=== PATIENT | male | born 1965 | race Caucasian/White ===

== ENCOUNTER 2023-11-14 18:54 | Inpatient (IN) | payer OTHER ==
[~2023-11-14] VITALS: Ht 177.8 cm; Wt 142.3 kg
[~2023-11-14 18:54] MED LIST: ACET-2123 PO; ALBU2.5V39 NEB; APIX5TAB PO; BUPR1FIL3 SL; BUPR1FIL5 SL; CALCIUM CHLORIDE 100 MG/ML 10 ML SYRINGE IVP ONE; DAPA10TA PO; EPINEPHrine 1:10,000 [1 MG/10 ML] SYRINGE IVP ONE; FINA-27 PO; FLUO20CA36 PO; FLUT1BLS15 IH; FURO40 PO; LACT10SO10 PO; METO2.5T2 PO; METO25XL PO; POTA-92 PO; SODIUM BICARBONATE [ADULT] 8.4% 50 MEQ/50 ML SYRINGE IVP ONE; TAMS0.4C94 PO; XALA2.5OS OU
[2023-11-14 19:06] VITALS: PULSE 87; RESP 26; O2SAT 100
[2023-11-14] MEDS ORDERED: 0.9% SODIUM CHLORIDE 10 ML SYRINGE IVP PRN (19:30)
[2023-11-14 19:58] LABS: BASOPHILS % (AUTO) 0.5 % (0.0-2.0); EOSINOPHILS % (AUTO) 0.6 % (1.0-6.0); HEMATOCRIT 49.5 % (41-53); LYMPHOCYTES # (AUTO) 2.7 K/uL (1.0-4.8); LYMPHOCYTES % (AUTO) 22.5 % (22.0-44.0); MEAN CORPUSCULAR HEMOGLOBIN 27.7 pg (26.0-34.0); MEAN CORPUSCULAR HGB CONC 30.4 G/dL (31.0-37.0); MEAN CORPUSCULAR VOLUME 91 fL (80-100); MONOCYTES # (AUTO) 1.3 K/uL (0.1-1.0); NEUTROPHILS # (AUTO) 7.9 K/uL (1.8-7.7); NEUTROPHILS % (AUTO) 65.4 % (40.0-70.0); PLATELET COUNT (AUTO) 173 K/uL (150-450); RED BLOOD CELL COUNT(AUTO) 5.43 MIL/uL (4.50-5.90); RED CELL DISTRIBUTION WIDTH 20.7 % (11.5-14.5); WHITE BLOOD COUNT (AUTO) 12.1 K/uL (4.5-11.0)
[2023-11-14 20:05] LABS: ABG BASE EXCESS 23.3 mmol/L (-2.0-3.0); ABG HCO3 38.9 mmol/L (22.0-26.0); ABG METHEMOGLOBIN 0.6 % (0.0-1.5); ABG OXYGEN CONTENT 21.2 mL/dL (15.0-23.0); ABG OXYGEN SATURATION 99.4 % (95.0-98.0); ABG OXYHEMOGLOBIN 88.2 % (94.0-100.0); ABG TOTAL HEMOGLOBIN 16.8 G/dL (12.0-18.0); PO2, ARTERIAL BG 204.3 mmHg (84.0-92.0); SOURCE, BLOOD GAS ARTERIAL; TEMPERATURE, FAHRENHEIT, BG 98.6 FAHREN (96.0-98.6)
[2023-11-14 20:06] LABS: INR 1.2 (0.9-1.1); PROTHROMBIN TIME 12.7 SEC (9.4-11.6)
[2023-11-14 20:06] LABS: ABG PCO2 156 mmHg (35-45); ABG PH 7.142 (7.35-7.450)
[2023-11-14 20:07] LABS: ABG CARBOXYHEMOGLOBIN 10.7 % (0.0-1.5); ALLEN TEST, BLOOD GAS Positive; O2 DEVICE,BLOOD GAS VENTILATOR (ROOM AIR); PEEP,BG 5 cm H2O; SITE, BLOOD GAS RT RADIAL; VT, ABG 500 ml
[2023-11-14 20:14] LABS: TROPONIN I-HIGH SENSITIVITY 40 ng/L (<76)
[2023-11-14 20:16] LABS: B-TYPE NATRIURETIC PEPTIDE 828 pg/mL (0-100)
[2023-11-14 20:31] LABS: ALANINE AMINOTRANSFERASE 20 U/L (12-78); ALBUMIN 3.1 g/dL (3.4-5.0); ALKALINE PHOSPHATASE 88 U/L (46-116); ANION GAP 0 mmol/L (8-16); ASPARTATE AMINOTRANSFERASE 31 U/L (15-37); BILIRUBIN,TOTAL 0.7 mg/dL (0.1-1.0); CALCIUM, TOTAL 8.7 mg/dL (8.8-10.5); CHLORIDE 98 mmol/L (98-107); CREATINE KINASE, TOTAL ONLY 85 U/L (39-308); CREATININE 0.91 mg/dL (0.60-1.30); GLOMERULAR FILTR. RATE CALC > 60 mL/min (>60); GLUCOSE,RANDOM 151 mg/dL (70-110); POTASSIUM 4.2 mmol/L (3.5-5.1); SODIUM SERUM 143 mmol/L (136-145); TOTAL PROTEIN, SERUM 6.4 g/dL (6.4-8.2); UREA NITROGEN, BLOOD 25 mg/dL (7-18)
[2023-11-14 20:33] LABS: ALCOHOL, BLOOD (SERUM) < 3 mg/dL (0-10)
[2023-11-14 20:36] LABS: LACTIC ACID 3.6 mmol/L (0.4-2.0)
[2023-11-14 20:37] LABS: CARBON DIOXIDE 45 mmol/L (22-29)
[2023-11-14 21:08] LABS: RBC MORPHOLOGY COMMENT ABNORMAL RBC MORPH
[2023-11-14] MEDS: PIPERACILLIN/TAZO 3.375 GM/D5W 50 ML IV ONE (22:10)
[2023-11-14] MEDS: SODIUM CHLORIDE 0.9% 3,600 ML IV ONE (22:10)
[2023-11-14] MEDS: FAMOTIDINE 20 MG/2 ML VIAL IVP SCH (22:11)
[2023-11-14] MEDS: MethylPREDNISolone SOD SUCC 125 MG/2 ML VIAL IVP SCH (22:11)
[2023-11-14] MEDS: PROPOFOL 1000 MG/ISO-OSM 100 ML IV PRN (22:12)
[2023-11-14] MEDS: ROCURONIUM BROMIDE 10 MG/ML 5 ML VIAL IVP ONE (22:36)
[2023-11-14 22:39] LABS: COVID AG,FIA SOURCE NASAL SWAB
[2023-11-14 23:01] LABS: APPEARANCE,URINE CLEAR (CLEAR); BILIRUBIN,URINE NEGATIVE (NEGATIVE); COLOR,URINE YELLOW (YELLOW); GLUCOSE, URINE (UA) 300-500 mg/dL (NEGATIVE); KETONES,URINE NEGATIVE (NEGATIVE); LEUKOCYTE ESTERASE ,URINE NEGATIVE (NEGATIVE); NITRATE,URINE NEGATIVE (NEGATIVE); OCCULT BLOOD,URINE TRACE (NEGATIVE); PROTEIN,URINE 100-200,SEE CONFIRM mg/dL (NEGATIVE)
[2023-11-14 23:06] VITALS: PULSE 142; RESP 30; O2SAT 98
[2023-11-14 23:07] LABS: ALCOHOL, URINE DRUG SCREEN NEGATIVE (NEGATIVE); AMPHET/METH SCREEN,URINE NEGATIVE (NEGATIVE); BARBITURATE SCREEN, URINE NEGATIVE (NEGATIVE); BENZODIAZEPINES SCREEN,URINE NEGATIVE (NEGATIVE); CANNABINOID SCREEN,URINE NEGATIVE (NEGATIVE); COCAINE SCREEN,URINE NEGATIVE (NEGATIVE); METHADONE SCREEN, URINE NEGATIVE (NEGATIVE); OPIATE SCREEN,URINE NEGATIVE (NEGATIVE); PHENCYCLIDINE SCREEN,URINE NEGATIVE (NEGATIVE)
[2023-11-14 23:10] LABS: SARS-COV2 (COVID) ANTIGEN,FIA Negative (Negative)
[2023-11-14 23:30] LABS: BACTERIA,URINE Few /HPF (None Seen); FINE GRANULAR CASTS,URINE 0-2 /LPF (None Seen); RBC,URINE 0-2 /HPF (0-2); SQUAMOUS EPITHELIAL CELL,UR Few /LPF (None Seen); SULFOSALICYLIC ACID,URINE 2+ (Negative); YEAST,URINE Moderate /HPF (None Seen)
[2023-11-14] MEDS ORDERED: DEXTROSE 50%-WATER 25 GM/50 ML SYRINGE IVP PRN (23:30)
[2023-11-14 23:49] LABS: ABG BASE EXCESS 17.5 mmol/L (-2.0-3.0); ABG HCO3 36.5 mmol/L (22.0-26.0); ABG METHEMOGLOBIN 0.6 % (0.0-1.5); ABG OXYGEN CONTENT 20.8 mL/dL (15.0-23.0); ABG OXYGEN SATURATION 97.2 % (95.0-98.0); ABG PH 7.326 (7.35-7.450); ABG TOTAL HEMOGLOBIN 16.4 G/dL (12.0-18.0); PO2, ARTERIAL BG 85.3 mmHg (84.0-92.0); SOURCE, BLOOD GAS ARTERIAL; TEMPERATURE, FAHRENHEIT, BG 98.1 FAHREN (96.0-98.6)
[2023-11-14 23:50] LABS: ABG CARBOXYHEMOGLOBIN 6.8 % (0.0-1.5); ABG PCO2 85 mmHg (35-45); ALLEN TEST, BLOOD GAS Positive; SITE, BLOOD GAS RT RADIAL
[2023-11-14 23:51] LABS: INSIPIRATORY PRESSURE, BG 26 cm H2O; O2 DEVICE,BLOOD GAS VENTILATOR (ROOM AIR); PEEP,BG 5 cm H2O; VENT MODE, BG Press. Control Vent (ROOM AIR); VT, ABG 401 ml
[2023-11-15] VITALS (21 sets, daily range): BP systolic 87–147; BP diastolic 55–94; PULSE 52–80; RESP 20–30; TEMP 96.9–99.6; O2SAT 91–95
[2023-11-15 00:25] LABS: TROPONIN I-HIGH SENSITIVITY 55 ng/L (<76)
[2023-11-15] MEDS ORDERED: NOREPINEPHRINE 8 MG/0.9 % NACL 250 ML IV PRN (01:00)
[2023-11-15] MEDS: CHLORHEXIDINE GLUCONATE 2% TOWELETTE [2'S/6'S] TP SCH (01:34)
[2023-11-15] MEDS: VANCOMYCIN HCL 1.5 GM in DEXTROSE 5%-WATER 250 ML IV ONE (01:36)
[2023-11-15] MEDS ORDERED: SODIUM CHLORIDE 0.9% 250 ML IV ONE (03:41)
[2023-11-15] MEDS: ACETAMINOPHEN 1000 MG/ISO-OSM 100 ML IV ONE (03:48)
[2023-11-15] MEDS: PIPERACILLIN/TAZO 3.375 GM/D5W 50 ML IV SCH (04:58)
[2023-11-15 05:00] LABS: ABG CARBOXYHEMOGLOBIN 4.6 % (0.0-1.5); ABG HCO3 35.8 mmol/L (22.0-26.0); ABG METHEMOGLOBIN 0.1 % (0.0-1.5); ABG OXYGEN CONTENT 20.4 mL/dL (15.0-23.0); ABG OXYHEMOGLOBIN 87.7 % (94.0-100.0); ABG PH 7.384 (7.35-7.450); ABG TOTAL HEMOGLOBIN 16.6 G/dL (12.0-18.0); PO2, ARTERIAL BG 58.3 mmHg (84.0-92.0); SOURCE, BLOOD GAS ARTERIAL; TEMPERATURE, FAHRENHEIT, BG 98.9 FAHREN (96.0-98.6)
[2023-11-15 05:01] LABS: ABG PCO2 70 mmHg (35-45); ALLEN TEST, BLOOD GAS Positive; SITE, BLOOD GAS RT RADIAL
[2023-11-15 05:02] LABS: O2 DEVICE,BLOOD GAS VENTILATOR (ROOM AIR); PEEP,BG 5 cm H2O; SPONTANEOUS VT, BG 385 ml; VENT MODE, BG Press. Control Vent (ROOM AIR); VT, ABG 385 ml
[2023-11-15 05:03] LABS: INSIPIRATORY PRESSURE, BG 26 cm H2O
[2023-11-15] MEDS: FUROSEMIDE 20 MG/2 ML VIAL IVP ONE (05:57)
[2023-11-15 05:59] LABS: BASOPHILS % (AUTO) 0.1 % (0.0-2.0); EOSINOPHILS % (AUTO) 0 % (1.0-6.0); HEMATOCRIT 50.1 % (41-53); HEMOGLOBIN 15.7 g/dL (13.5-17.5); LYMPHOCYTES # (AUTO) 0.5 K/uL (1.0-4.8); LYMPHOCYTES % (AUTO) 4.9 % (22.0-44.0); MEAN CORPUSCULAR HEMOGLOBIN 27.8 pg (26.0-34.0); MEAN CORPUSCULAR HGB CONC 31.3 G/dL (31.0-37.0); MEAN CORPUSCULAR VOLUME 89 fL (80-100); MONOCYTES # (AUTO) 0.4 K/uL (0.1-1.0); MONOCYTES % (AUTO) 3.9 % (2.0-9.0); NEUTROPHILS # (AUTO) 9.9 K/uL (1.8-7.7); PLATELET COUNT (AUTO) 149 K/uL (150-450); RED BLOOD CELL COUNT(AUTO) 5.63 MIL/uL (4.50-5.90); RED CELL DISTRIBUTION WIDTH 20.8 % (11.5-14.5); WHITE BLOOD COUNT (AUTO) 10.9 K/uL (4.5-11.0)
[2023-11-15 06:01] LABS: NEUTROPHILS % (AUTO) 91.1 % (40.0-70.0)
[2023-11-15 06:27] LABS: RBC MORPHOLOGY COMMENT ABNORMAL RBC MORPH
[2023-11-15] MEDS: ALBUTEROL SULFATE 2.5 MG/0.5 ML NEB SOLUTION NEB PRN (07:35)
[2023-11-15] MEDS: IPRATROPIUM BROMIDE 0.5 MG/2.5 ML NEB SOLUTION NEB PRN (07:35)
[2023-11-15] MEDS: CHLORHEXIDINE GLUCONATE 0.12% 15 ML UDCUP ORAL RINSE MM SCH (08:22)
[2023-11-15] MEDS: VANCOMYCIN 1GM/WATER(PEG/NADA) 200 ML IV SCH (08:30)
[2023-11-15 08:46] LABS: ALANINE AMINOTRANSFERASE 19 U/L (12-78); ALBUMIN 2.9 g/dL (3.4-5.0); ALKALINE PHOSPHATASE 80 U/L (46-116); ANION GAP 2 mmol/L (8-16); ASPARTATE AMINOTRANSFERASE 26 U/L (15-37); BILIRUBIN,TOTAL 0.6 mg/dL (0.1-1.0); CALCIUM, TOTAL 8.5 mg/dL (8.8-10.5); CHLORIDE 98 mmol/L (98-107); CREATININE 0.66 mg/dL (0.60-1.30); GLOMERULAR FILTR. RATE CALC > 60 mL/min (>60); GLUCOSE,RANDOM 114 mg/dL (70-110); PHOSPHORUS 2.3 mg/dL (2.5-4.9); POTASSIUM 4.1 mmol/L (3.5-5.1); SODIUM SERUM 141 mmol/L (136-145); TOTAL PROTEIN, SERUM 6.3 g/dL (6.4-8.2); UREA NITROGEN, BLOOD 22 mg/dL (7-18)
[2023-11-15 08:47] LABS: GLUCOMETER DEV NAME(LOC) ICU.S6; GLUCOSE,POINT OF CARE 119 MG/DL (70-110)
[2023-11-15 08:47] LABS: GLUCOMETER DEV NAME(LOC) ICU.S6; GLUCOSE,POINT OF CARE 120 MG/DL (70-110)
[2023-11-15 08:49] LABS: CARBON DIOXIDE 41 mmol/L (22-29)
[2023-11-15] MEDS: PROPOFOL 1000 MG/ISO-OSM 100 ML IV PRN (08:51)
[2023-11-15 11:38] LABS: ABG CARBOXYHEMOGLOBIN 3.2 % (0.0-1.5); ABG METHEMOGLOBIN 0.2 % (0.0-1.5); ABG OXYGEN CONTENT 20.4 mL/dL (15.0-23.0); ABG OXYGEN SATURATION 91.4 % (95.0-98.0); ABG OXYHEMOGLOBIN 88.3 % (94.0-100.0); ABG PCO2 49 mmHg (35-45); ABG PH 7.543 (7.35-7.450); ABG TOTAL HEMOGLOBIN 16.5 G/dL (12.0-18.0); PO2, ARTERIAL BG 46.2 mmHg (84.0-92.0); SOURCE, BLOOD GAS ARTERIAL; TEMPERATURE, FAHRENHEIT, BG 96.8 FAHREN (96.0-98.6)
[2023-11-15 11:41] LABS: ALLEN TEST, BLOOD GAS Positive; O2 DEVICE,BLOOD GAS VENTILATOR (ROOM AIR); SITE, BLOOD GAS RT BRACHIAL; VENT MODE, BG Press. Control Vent (ROOM AIR)
[2023-11-15 11:42] LABS: INSIPIRATORY PRESSURE, BG 26 cm H2O; PEEP,BG 5 cm H2O; SPONTANEOUS VT, BG 529 ml
[2023-11-15] MEDS: FUROSEMIDE 20 MG/2 ML VIAL IVP SCH (12:18)
[2023-11-15] MEDS: HEPARIN SODIUM 25000 UNITS/D5W 250 ML IV PRN (12:19)
[2023-11-15] MEDS: AcetaZOLAMIDE SODIUM 500 MG VIAL IVP SCH (14:26)
[2023-11-15] MEDS: DOXYCYCLINE HYCLATE 100 MG in DEXTROSE 5%-WATER 100 ML IV SCH (14:30)
[2023-11-15 14:44] LABS: ABG BASE EXCESS 21.3 mmol/L (-2.0-3.0); ABG CARBOXYHEMOGLOBIN 2.7 % (0.0-1.5); ABG HCO3 41.7 mmol/L (22.0-26.0); ABG METHEMOGLOBIN 0.2 % (0.0-1.5); ABG OXYGEN CONTENT 20.7 mL/dL (15.0-23.0); ABG OXYGEN SATURATION 92.6 % (95.0-98.0); ABG OXYHEMOGLOBIN 89.9 % (94.0-100.0); ABG PCO2 55 mmHg (35-45); ABG PH 7.519 (7.35-7.450); ABG TOTAL HEMOGLOBIN 16.4 G/dL (12.0-18.0); PO2, ARTERIAL BG 53.2 mmHg (84.0-92.0); SOURCE, BLOOD GAS ARTERIAL; TEMPERATURE, FAHRENHEIT, BG 96.8 FAHREN (96.0-98.6)
[2023-11-15 14:46] LABS: ALLEN TEST, BLOOD GAS Positive; O2 DEVICE,BLOOD GAS VENTILATOR (ROOM AIR); PEEP,BG 5 cm H2O; SITE, BLOOD GAS RT BRACHIAL; VT, ABG 500 ml
[2023-11-15] MEDS: MethylPREDNISolone SOD SUCC 125 MG/2 ML VIAL IVP SCH (19:00)
[2023-11-15] MEDS ORDERED: 0.9% SODIUM CHLORIDE 5 ML NEB SOLUTION NEB ONE (20:09)
[2023-11-15 20:37] LABS: GLUCOMETER DEV NAME(LOC) ICU.S6; GLUCOSE,POINT OF CARE 134 MG/DL (70-110)
[2023-11-15 20:38] LABS: GLUCOMETER DEV NAME(LOC) ICU.S6; GLUCOSE,POINT OF CARE 141 MG/DL (70-110)
[2023-11-15] MEDS: INSULIN LISPRO 100 UNITS/ML SQ PRN (23:35)
[2023-11-15 23:58] LABS: GLUCOMETER DEV NAME(LOC) ICU.S6; GLUCOSE,POINT OF CARE 168 MG/DL (70-110)
[2023-11-16] VITALS (21 sets, daily range): BP systolic 110–123; BP diastolic 65–77; PULSE 45–65; RESP 20–28; TEMP 98.2–98.9; O2SAT 89–93
[2023-11-16] MEDS ORDERED: SODIUM CHLORIDE 0.9% 250 ML IV ONE ×2 (05:17→21:27)
[2023-11-16 05:22] LABS: BASOPHILS % (AUTO) 0.4 % (0.0-2.0); EOSINOPHILS % (AUTO) 0 % (1.0-6.0); HEMATOCRIT 47.2 % (41-53); HEMOGLOBIN 14.8 g/dL (13.5-17.5); LYMPHOCYTES # (AUTO) 0.6 K/uL (1.0-4.8); LYMPHOCYTES % (AUTO) 6.5 % (22.0-44.0); MEAN CORPUSCULAR HEMOGLOBIN 27.4 pg (26.0-34.0); MEAN CORPUSCULAR HGB CONC 31.4 G/dL (31.0-37.0); MEAN CORPUSCULAR VOLUME 87 fL (80-100); MONOCYTES # (AUTO) 0.4 K/uL (0.1-1.0); MONOCYTES % (AUTO) 4.1 % (2.0-9.0); NEUTROPHILS # (AUTO) 8.2 K/uL (1.8-7.7); PLATELET COUNT (AUTO) 163 K/uL (150-450); RED BLOOD CELL COUNT(AUTO) 5.41 MIL/uL (4.50-5.90); RED CELL DISTRIBUTION WIDTH 21.1 % (11.5-14.5); WHITE BLOOD COUNT (AUTO) 9.2 K/uL (4.5-11.0)
[2023-11-16 05:33] LABS: ANION GAP 4 mmol/L (8-16); CALCIUM, TOTAL 8.4 mg/dL (8.8-10.5); CARBON DIOXIDE 40 mmol/L (22-29); CHLORIDE 94 mmol/L (98-107); CREATININE 0.96 mg/dL (0.60-1.30); GLOMERULAR FILTR. RATE CALC > 60 mL/min (>60); GLUCOSE,RANDOM 150 mg/dL (70-110); SODIUM SERUM 138 mmol/L (136-145); UREA NITROGEN, BLOOD 26 mg/dL (7-18)
[2023-11-16 06:01] LABS: POTASSIUM 2.9 mmol/L (3.5-5.1)
[2023-11-16 06:08] LABS: GLUCOMETER DEV NAME(LOC) ICU.S6; GLUCOSE,POINT OF CARE 169 MG/DL (70-110)
[2023-11-16] MEDS: POTASSIUM CHLORIDE 10% 40 MEQ/30 ML LIQUID UDCUP NG ONE (06:54)
[2023-11-16] MEDS ORDERED: IOHEXOL 350 MG/ML 100 ML VIAL ONE (09:50)
[2023-11-16] MEDS ORDERED: SODIUM CHLORIDE 0.9% 100 ML ONE (09:50)
[2023-11-16] MEDS: POTASSIUM CHL 10 MEQ/WATER 50 ML IV PRN (12:41)
[2023-11-16] MEDS: ALBUTEROL SULFATE 2.5 MG/0.5 ML NEB SOLUTION NEB SCH (13:02)
[2023-11-16] MEDS: IPRATROPIUM BROMIDE 0.5 MG/2.5 ML NEB SOLUTION NEB SCH (13:02)
[2023-11-16 17:42] LABS: GLUCOMETER DEV NAME(LOC) ICU.S6; GLUCOSE,POINT OF CARE 150 MG/DL (70-110)
[2023-11-16 17:57] LABS: GLUCOMETER DEV NAME(LOC) ICUN.5; GLUCOSE,POINT OF CARE 166 MG/DL (70-110)
[2023-11-16] MEDS: VANCOMYCIN HCL 1.25 GM in DEXTROSE 5%-WATER 250 ML IV SCH (20:52)
[2023-11-17] VITALS (25 sets, daily range): BP systolic 113–125; BP diastolic 64–76; PULSE 44–60; RESP 20; TEMP 98.6–99; O2SAT 68–93
[2023-11-17 04:15] LABS: BASOPHILS % (AUTO) 0.4 % (0.0-2.0); EOSINOPHILS % (AUTO) 0 % (1.0-6.0); HEMATOCRIT 46.4 % (41-53); HEMOGLOBIN 14.8 g/dL (13.5-17.5); LYMPHOCYTES # (AUTO) 0.5 K/uL (1.0-4.8); LYMPHOCYTES % (AUTO) 5.2 % (22.0-44.0); MEAN CORPUSCULAR HEMOGLOBIN 27.6 pg (26.0-34.0); MEAN CORPUSCULAR VOLUME 86 fL (80-100); MONOCYTES # (AUTO) 0.5 K/uL (0.1-1.0); MONOCYTES % (AUTO) 5.8 % (2.0-9.0); PLATELET COUNT (AUTO) 154 K/uL (150-450); RED BLOOD CELL COUNT(AUTO) 5.37 MIL/uL (4.50-5.90); RED CELL DISTRIBUTION WIDTH 21.1 % (11.5-14.5)
[2023-11-17 04:18] LABS: NEUTROPHILS % (AUTO) 88.6 % (40.0-70.0)
[2023-11-17 04:28] LABS: ANION GAP 4 mmol/L (8-16); CALCIUM, TOTAL 8.2 mg/dL (8.8-10.5); CARBON DIOXIDE 36 mmol/L (22-29); CHLORIDE 97 mmol/L (98-107); CREATININE 0.96 mg/dL (0.60-1.30); GLOMERULAR FILTR. RATE CALC > 60 mL/min (>60); GLUCOSE,RANDOM 153 mg/dL (70-110); PHOSPHORUS 3.6 mg/dL (2.5-4.9); POTASSIUM 3.2 mmol/L (3.5-5.1); SODIUM SERUM 137 mmol/L (136-145); UREA NITROGEN, BLOOD 31 mg/dL (7-18)
[2023-11-17 05:48] LABS: GLUCOMETER DEV NAME(LOC) ICUN.5; GLUCOSE,POINT OF CARE 150 MG/DL (70-110)
[2023-11-17 05:48] LABS: GLUCOMETER DEV NAME(LOC) ICU.S6; GLUCOSE,POINT OF CARE 178 MG/DL (70-110)
[2023-11-17 12:08] LABS: GLUCOMETER DEV NAME(LOC) ICU.S6; GLUCOSE,POINT OF CARE 150 MG/DL (70-110)
[2023-11-17] MEDS: ACETYLCYSTEINE 10% 100 MG/ML 4 ML NEB SOLUTION NEB SCH (13:01)
[2023-11-17 22:17] LABS: GLUCOMETER DEV NAME(LOC) ICU.S6; GLUCOSE,POINT OF CARE 147 MG/DL (70-110)
[2023-11-18] VITALS (26 sets, daily range): BP systolic 114–124; BP diastolic 67–74; PULSE 45–68; RESP 20; TEMP 98.4–98.8; O2SAT 90–93
[2023-11-18 00:37] LABS: GLUCOMETER DEV NAME(LOC) ICU.S6; GLUCOSE,POINT OF CARE 163 MG/DL (70-110)
[2023-11-18 05:22] LABS: BASOPHILS % (AUTO) 0.1 % (0.0-2.0); EOSINOPHILS % (AUTO) 0 % (1.0-6.0); HEMATOCRIT 48.2 % (41-53); HEMOGLOBIN 15.2 g/dL (13.5-17.5); LYMPHOCYTES # (AUTO) 0.4 K/uL (1.0-4.8); LYMPHOCYTES % (AUTO) 6.1 % (22.0-44.0); MEAN CORPUSCULAR HEMOGLOBIN 27.3 pg (26.0-34.0); MEAN CORPUSCULAR HGB CONC 31.6 G/dL (31.0-37.0); MEAN CORPUSCULAR VOLUME 86 fL (80-100); MONOCYTES # (AUTO) 0.4 K/uL (0.1-1.0); MONOCYTES % (AUTO) 6.3 % (2.0-9.0); NEUTROPHILS # (AUTO) 5.4 K/uL (1.8-7.7); PLATELET COUNT (AUTO) 147 K/uL (150-450); RED BLOOD CELL COUNT(AUTO) 5.58 MIL/uL (4.50-5.90); RED CELL DISTRIBUTION WIDTH 20.9 % (11.5-14.5); WHITE BLOOD COUNT (AUTO) 6.2 K/uL (4.5-11.0)
[2023-11-18 05:30] LABS: NEUTROPHILS % (AUTO) 87.5 % (40.0-70.0)
[2023-11-18 05:40] LABS: ANION GAP 4 mmol/L (8-16); CALCIUM, TOTAL 8.2 mg/dL (8.8-10.5); CARBON DIOXIDE 34 mmol/L (22-29); CHLORIDE 100 mmol/L (98-107); CREATININE 0.77 mg/dL (0.60-1.30); GLOMERULAR FILTR. RATE CALC > 60 mL/min (>60); GLUCOSE,RANDOM 135 mg/dL (70-110); POTASSIUM 3.4 mmol/L (3.5-5.1); SODIUM SERUM 138 mmol/L (136-145); UREA NITROGEN, BLOOD 30 mg/dL (7-18); VANCOMYCIN,RANDOM 17.9 mcg/mL (25.0-50.0)
[2023-11-18] MEDS: HEPARIN SODIUM,PORCINE 5,000 UNITS/ML VIAL IVP PRN (05:55)
[2023-11-18 06:33] LABS: GLUCOMETER DEV NAME(LOC) ICU.S6; GLUCOSE,POINT OF CARE 181 MG/DL (70-110)
[2023-11-18 20:26] LABS: GLUCOMETER DEV NAME(LOC) ICU.S6; GLUCOSE,POINT OF CARE 186 MG/DL (70-110)
[2023-11-18 20:26] LABS: GLUCOMETER DEV NAME(LOC) ICUN.5; GLUCOSE,POINT OF CARE 181 MG/DL (70-110)
[2023-11-19] VITALS (26 sets, daily range): BP systolic 123–145; BP diastolic 70–81; PULSE 45–89; RESP 20–25; TEMP 98.3–99.4; O2SAT 90–96
[2023-11-19 05:36] LABS: BASOPHILS % (AUTO) 0.1 % (0.0-2.0); EOSINOPHILS % (AUTO) 0 % (1.0-6.0); HEMATOCRIT 48.9 % (41-53); HEMOGLOBIN 15.4 g/dL (13.5-17.5); LYMPHOCYTES # (AUTO) 0.3 K/uL (1.0-4.8); LYMPHOCYTES % (AUTO) 6.1 % (22.0-44.0); MEAN CORPUSCULAR HEMOGLOBIN 27.3 pg (26.0-34.0); MEAN CORPUSCULAR HGB CONC 31.4 G/dL (31.0-37.0); MEAN CORPUSCULAR VOLUME 87 fL (80-100); MONOCYTES # (AUTO) 0.4 K/uL (0.1-1.0); MONOCYTES % (AUTO) 7.1 % (2.0-9.0); NEUTROPHILS # (AUTO) 4.6 K/uL (1.8-7.7); PLATELET COUNT (AUTO) 130 K/uL (150-450); RED BLOOD CELL COUNT(AUTO) 5.63 MIL/uL (4.50-5.90); RED CELL DISTRIBUTION WIDTH 20.6 % (11.5-14.5); WHITE BLOOD COUNT (AUTO) 5.3 K/uL (4.5-11.0)
[2023-11-19 05:50] LABS: ANION GAP 6 mmol/L (8-16); CALCIUM, TOTAL 8.4 mg/dL (8.8-10.5); CARBON DIOXIDE 33 mmol/L (22-29); CHLORIDE 96 mmol/L (98-107); CREATININE 0.72 mg/dL (0.60-1.30); GLOMERULAR FILTR. RATE CALC > 60 mL/min (>60); GLUCOSE,RANDOM 161 mg/dL (70-110); POTASSIUM 3.2 mmol/L (3.5-5.1); SODIUM SERUM 135 mmol/L (136-145); UREA NITROGEN, BLOOD 29 mg/dL (7-18)
[2023-11-19 05:51] LABS: GLUCOMETER DEV NAME(LOC) ICU.S6; GLUCOSE,POINT OF CARE 174 MG/DL (70-110)
[2023-11-19] MEDS: POTASSIUM CHLORIDE 10% 40 MEQ/30 ML LIQUID UDCUP NG PRN (05:56)
[2023-11-19 05:57] LABS: NEUTROPHILS % (AUTO) 86.7 % (40.0-70.0)
[2023-11-19 06:56] LABS: GLUCOMETER DEV NAME(LOC) ICUN.5; GLUCOSE,POINT OF CARE 179 MG/DL (70-110)
[2023-11-19] MEDS: FUROSEMIDE 20 MG/2 ML VIAL IVP SCH (08:16)
[2023-11-19] MEDS: AMINO ACIDS/PROTEIN HYDROLYS 30 ML LIQUID TUBE GT SCH (09:40)
[2023-11-19] MEDS ORDERED: SODIUM CHLORIDE 0.9% 250 ML IV ONE ×2 (10:37)
[2023-11-19 12:31] LABS: GLUCOMETER DEV NAME(LOC) ICU.S6; GLUCOSE,POINT OF CARE 153 MG/DL (70-110)
[2023-11-19 13:51] LABS: ABG BASE EXCESS 9.7 mmol/L (-2.0-3.0); ABG CARBOXYHEMOGLOBIN 1.3 % (0.0-1.5); ABG METHEMOGLOBIN 0.2 % (0.0-1.5); ABG OXYGEN CONTENT 21.4 mL/dL (15.0-23.0); ABG OXYGEN SATURATION 94.2 % (95.0-98.0); ABG OXYHEMOGLOBIN 92.8 % (94.0-100.0); ABG PCO2 60 mmHg (35-45); ABG TOTAL HEMOGLOBIN 16.4 G/dL (12.0-18.0); PO2, ARTERIAL BG 71.9 mmHg (84.0-92.0); SOURCE, BLOOD GAS ARTERIAL; TEMPERATURE, FAHRENHEIT, BG 98.9 FAHREN (96.0-98.6)
[2023-11-19 13:52] LABS: ABG A-A DIFF O2 216.5 mmHg (10-20.0); ALLEN TEST, BLOOD GAS Positive; O2 DEVICE,BLOOD GAS VENTILATOR (ROOM AIR); SITE, BLOOD GAS RT RADIAL
[2023-11-19 13:53] LABS: PEEP,BG 5 cm H2O; SPONTANEOUS VT, BG 576 ml; VT, ABG 500 ml
[2023-11-19] MEDS ORDERED: POTASSIUM CHL 10 MEQ/WATER 50 ML IV PRN ×2 (15:00)
[2023-11-19] MEDS ORDERED: POTASSIUM CHLORIDE 10% 40 MEQ/30 ML LIQUID UDCUP NG PRN ×2 (15:00)
[2023-11-19] MEDS: POTASSIUM CHLORIDE 20 MEQ ER TABLET PO PRN (15:16)
[2023-11-19 23:01] LABS: GLUCOMETER DEV NAME(LOC) ICUN.5; GLUCOSE,POINT OF CARE 144 MG/DL (70-110)
[2023-11-20] VITALS (19 sets, daily range): BP systolic 103–154; BP diastolic 61–111; PULSE 41–98; RESP 13–25; TEMP 98.7–99.7; O2SAT 90–94
[2023-11-20 05:38] LABS: ANION GAP 5 mmol/L (8-16); CALCIUM, TOTAL 8.5 mg/dL (8.8-10.5); CARBON DIOXIDE 33 mmol/L (22-29); CHLORIDE 99 mmol/L (98-107); CREATININE 0.74 mg/dL (0.60-1.30); GLOMERULAR FILTR. RATE CALC > 60 mL/min (>60); GLUCOSE,RANDOM 152 mg/dL (70-110); POTASSIUM 3.7 mmol/L (3.5-5.1); SODIUM SERUM 137 mmol/L (136-145); UREA NITROGEN, BLOOD 38 mg/dL (7-18)
[2023-11-20] MEDS: DEXMEDETOMIDINE HCL 400 MCG in SODIUM CHLORIDE 0.9% 96 ML IV PRN (08:26)
[2023-11-20 12:24] LABS: ABG BASE EXCESS 10.2 mmol/L (-2.0-3.0); ABG CARBOXYHEMOGLOBIN 0.8 % (0.0-1.5); ABG HCO3 31.1 mmol/L (22.0-26.0); ABG METHEMOGLOBIN 0.3 % (0.0-1.5); ABG OXYGEN CONTENT 23.4 mL/dL (15.0-23.0); ABG OXYGEN SATURATION 94.8 % (95.0-98.0); ABG OXYHEMOGLOBIN 93.8 % (94.0-100.0); ABG PCO2 63 mmHg (35-45); ABG PH 7.371 (7.35-7.450); ABG TOTAL HEMOGLOBIN 17.8 G/dL (12.0-18.0); PO2, ARTERIAL BG 75.8 mmHg (84.0-92.0); SOURCE, BLOOD GAS ARTERIAL
[2023-11-20 12:25] LABS: ABG A-A DIFF O2 173.6 mmHg (10-20.0); ALLEN TEST, BLOOD GAS Positive; O2 DEVICE,BLOOD GAS VENTILATOR (ROOM AIR); PEEP,BG 5 cm H2O; PRESSURE SUPPORT, BG 5 cm H2O; SITE, BLOOD GAS RT RADIAL; SPONTANEOUS VT, BG 631 ml; VENT MODE, BG Press. Support Vent. (ROOM AIR)
[2023-11-20 20:31] LABS: GLUCOMETER DEV NAME(LOC) ICU.S6; GLUCOSE,POINT OF CARE 163 MG/DL (70-110)
[2023-11-20 20:31] LABS: GLUCOMETER DEV NAME(LOC) ICU.S6; GLUCOSE,POINT OF CARE 117 MG/DL (70-110)
[2023-11-20 20:31] LABS: GLUCOMETER DEV NAME(LOC) ICU.S6; GLUCOSE,POINT OF CARE 194 MG/DL (70-110)
[2023-11-21] VITALS (15 sets, daily range): BP systolic 131–152; BP diastolic 75–97; PULSE 62–83; RESP 11–25; TEMP 98.7–99.7; O2SAT 88–96
[2023-11-21 04:40] LABS: GLUCOMETER DEV NAME(LOC) ICU.S6; GLUCOSE,POINT OF CARE 182 MG/DL (70-110)
[2023-11-21 05:57] LABS: ANION GAP 3 mmol/L (8-16); CALCIUM, TOTAL 8.9 mg/dL (8.8-10.5); CARBON DIOXIDE 38 mmol/L (22-29); CHLORIDE 100 mmol/L (98-107); CREATININE 0.72 mg/dL (0.60-1.30); GLOMERULAR FILTR. RATE CALC > 60 mL/min (>60); GLUCOSE,RANDOM 142 mg/dL (70-110); POTASSIUM 3.1 mmol/L (3.5-5.1); SODIUM SERUM 141 mmol/L (136-145); UREA NITROGEN, BLOOD 42 mg/dL (7-18); VANCOMYCIN,RANDOM 17.9 mcg/mL (25.0-50.0)
[2023-11-21] MEDS: HEPARIN SODIUM,PORCINE 5,000 UNITS/ML VIAL IVP PRN (06:20)
[2023-11-21] MEDS: APIXABAN 5 MG TABLET PO SCH (09:58)
[2023-11-21] MEDS: POTASSIUM CHLORIDE 20 MEQ ER TABLET PO PRN (12:00)
[2023-11-21] MEDS ORDERED: SODIUM CHLORIDE 0.9% 250 ML IV ONE (15:30)
[2023-11-21] MEDS: MethylPREDNISolone SOD SUCC 40 MG/ML VIAL IVP SCH (17:10)
[2023-11-21] MEDS: TraZODone HCL 50 MG TABLET PO PRN (19:56)
[2023-11-21 21:15] LABS: GLUCOMETER DEV NAME(LOC) ICUN.5; GLUCOSE,POINT OF CARE 172 MG/DL (70-110)
[2023-11-21 21:15] LABS: GLUCOMETER DEV NAME(LOC) ICUN.5; GLUCOSE,POINT OF CARE 152 MG/DL (70-110)
[2023-11-21 21:15] LABS: GLUCOMETER DEV NAME(LOC) ICUN.5; GLUCOSE,POINT OF CARE 147 MG/DL (70-110)
[2023-11-21 21:30] LABS: GLUCOMETER DEV NAME(LOC) ICUN.5; GLUCOSE,POINT OF CARE 193 MG/DL (70-110)
[2023-11-21 22:24] LABS: ANION GAP 2 mmol/L (8-16); CALCIUM, TOTAL 8.7 mg/dL (8.8-10.5); CARBON DIOXIDE 40 mmol/L (22-29); CHLORIDE 101 mmol/L (98-107); CREATININE 0.78 mg/dL (0.60-1.30); GLOMERULAR FILTR. RATE CALC > 60 mL/min (>60); GLUCOSE,RANDOM 166 mg/dL (70-110); POTASSIUM 3.6 mmol/L (3.5-5.1); SODIUM SERUM 143 mmol/L (136-145); UREA NITROGEN, BLOOD 40 mg/dL (7-18)
[2023-11-22] VITALS (12 sets, daily range): BP systolic 130–156; BP diastolic 71–101; PULSE 55–96; RESP 13–31; TEMP 97.8–98.9; O2SAT 68–99
[2023-11-22 05:24] LABS: ANION GAP 2 mmol/L (8-16); CALCIUM, TOTAL 8.9 mg/dL (8.8-10.5); CARBON DIOXIDE 38 mmol/L (22-29); CHLORIDE 101 mmol/L (98-107); CREATININE 0.74 mg/dL (0.60-1.30); GLOMERULAR FILTR. RATE CALC > 60 mL/min (>60); GLUCOSE,RANDOM 168 mg/dL (70-110); POTASSIUM 3.9 mmol/L (3.5-5.1); SODIUM SERUM 141 mmol/L (136-145); UREA NITROGEN, BLOOD 35 mg/dL (7-18)
[2023-11-22 05:45] LABS: GLUCOMETER DEV NAME(LOC) ICUN.5; GLUCOSE,POINT OF CARE 178 MG/DL (70-110)
[2023-11-22 05:52] LABS: BASOPHILS % (AUTO) 0.1 % (0.0-2.0); EOSINOPHILS % (AUTO) 0 % (1.0-6.0); HEMATOCRIT 52.4 % (41-53); HEMOGLOBIN 16.4 g/dL (13.5-17.5); LYMPHOCYTES # (AUTO) 0.4 K/uL (1.0-4.8); LYMPHOCYTES % (AUTO) 3.5 % (22.0-44.0); MEAN CORPUSCULAR HEMOGLOBIN 27.2 pg (26.0-34.0); MEAN CORPUSCULAR HGB CONC 31.3 G/dL (31.0-37.0); MEAN CORPUSCULAR VOLUME 87 fL (80-100); MONOCYTES # (AUTO) 0.6 K/uL (0.1-1.0); MONOCYTES % (AUTO) 5.6 % (2.0-9.0); NEUTROPHILS # (AUTO) 9.2 K/uL (1.8-7.7); PLATELET COUNT (AUTO) 127 K/uL (150-450); RED BLOOD CELL COUNT(AUTO) 6.04 MIL/uL (4.50-5.90); WHITE BLOOD COUNT (AUTO) 10.1 K/uL (4.5-11.0)
[2023-11-22 05:54] LABS: NEUTROPHILS % (AUTO) 90.8 % (40.0-70.0)
[2023-11-22] MEDS ORDERED: SODIUM CHLORIDE 0.9% 250 ML IV ONE (08:26)
[2023-11-22] MEDS: FUROSEMIDE 40 MG TABLET PO SCH (10:29)
[2023-11-22] MEDS ORDERED: SODIUM CHLORIDE 0.9% 1,000 ML ONE (12:50)
[2023-11-23] VITALS (14 sets, daily range): BP systolic 123–150; BP diastolic 64–102; PULSE 58–90; RESP 16–23; TEMP 97.8–98.2; O2SAT 90–97
[2023-11-23 10:43] LABS: ANION GAP 5 mmol/L (8-16); CALCIUM, TOTAL 8.7 mg/dL (8.8-10.5); CARBON DIOXIDE 35 mmol/L (22-29); CHLORIDE 98 mmol/L (98-107); GLOMERULAR FILTR. RATE CALC > 60 mL/min (>60); GLUCOSE,RANDOM 227 mg/dL (70-110); POTASSIUM 3.7 mmol/L (3.5-5.1); SODIUM SERUM 138 mmol/L (136-145); UREA NITROGEN, BLOOD 28 mg/dL (7-18)
[2023-11-23] MEDS ORDERED: DOXY-354 PO (15:11)
[2023-11-23] MEDS ORDERED: LEVO750T68 PO (15:11)
[2023-11-23] MEDS ORDERED: PRED-729 PO (15:11)
[2023-11-23] MEDS ORDERED: AMOX1TAB16 PO (15:11)
[2023-11-23] MEDS: PredniSONE 20 MG TABLET PO ONE (15:15)
[2023-11-23] MEDS ORDERED: ZOLPIDEM TARTRATE 5 MG TABLET PO PRN (15:45)
[2023-11-23] MEDS: NICOTINE 21 MG/24 HOUR PATCH TD SCH (17:37)
[2023-11-24] VITALS (10 sets, daily range): BP systolic 120–134; BP diastolic 74–89; PULSE 60–95; RESP 18–20; TEMP 97.9–98.2; O2SAT 87–97
[2023-11-24 07:58] LABS: ANION GAP 3 mmol/L (8-16); CARBON DIOXIDE 34 mmol/L (22-29); CHLORIDE 102 mmol/L (98-107); CREATININE 0.69 mg/dL (0.60-1.30); GLOMERULAR FILTR. RATE CALC > 60 mL/min (>60); GLUCOSE,RANDOM 141 mg/dL (70-110); POTASSIUM 3.8 mmol/L (3.5-5.1); SODIUM SERUM 139 mmol/L (136-145); UREA NITROGEN, BLOOD 27 mg/dL (7-18); VANCOMYCIN,RANDOM 12.8 mcg/mL (25.0-50.0)
[2023-11-24] MEDS: PredniSONE 20 MG TABLET PO ONE (16:09)
[2023-11-24] MEDS: VANCOMYCIN HCL 1.5 GM in DEXTROSE 5%-WATER 250 ML IV SCH (20:57)
[2023-11-24] MEDS: PredniSONE 20 MG TABLET PO SCH (20:58)
[2023-11-25 00:53] VITALS: BP 130/86; PULSE 87; RESP 18; TEMP 98
[2023-11-25 04:50] VITALS: BP 149/72; PULSE 76; RESP 19; TEMP 98
[2023-11-25 06:08] LABS: ANION GAP 3 mmol/L (8-16); CALCIUM, TOTAL 9.1 mg/dL (8.8-10.5); CARBON DIOXIDE 34 mmol/L (22-29); CHLORIDE 102 mmol/L (98-107); CREATININE 0.66 mg/dL (0.60-1.30); GLOMERULAR FILTR. RATE CALC > 60 mL/min (>60); GLUCOSE,RANDOM 127 mg/dL (70-110); POTASSIUM 3.9 mmol/L (3.5-5.1); SODIUM SERUM 139 mmol/L (136-145); UREA NITROGEN, BLOOD 27 mg/dL (7-18)
[2023-11-25 07:52] VITALS: PULSE 62; RESP 20; O2SAT 90
[2023-11-25 08:22] VITALS: PULSE 58; RESP 20; O2SAT 93
[2023-11-26 00:11] LABS: GLUCOMETER DEV NAME(LOC) 5S.2C; GLUCOSE,POINT OF CARE 157 MG/DL (70-110)
[2023-11-26 00:11] LABS: GLUCOMETER DEV NAME(LOC) 5S.2C; GLUCOSE,POINT OF CARE 132 MG/DL (70-110)
[2023-11-26 00:12] LABS: GLUCOMETER DEV NAME(LOC) 5S.2C; GLUCOSE,POINT OF CARE 122 MG/DL (70-110)
[2023-11-26 00:12] LABS: GLUCOMETER DEV NAME(LOC) 5S.2C; GLUCOSE,POINT OF CARE 276 MG/DL (70-110)
[2023-11-26 00:12] LABS: GLUCOMETER DEV NAME(LOC) 5S.2C; GLUCOSE,POINT OF CARE 141 MG/DL (70-110)
[2023-11-27 11:51] LABS: GLUCOMETER DEV NAME(LOC) 5N.1C; GLUCOSE,POINT OF CARE 151 MG/DL (70-110)
[2023-11-27 11:51] LABS: GLUCOMETER DEV NAME(LOC) 5N.1C; GLUCOSE,POINT OF CARE 202 MG/DL (70-110)
[2023-11-27 11:56] LABS: GLUCOMETER DEV NAME(LOC) 5N.1C; GLUCOSE,POINT OF CARE 178 MG/DL (70-110)
[2023-11-27 11:56] LABS: GLUCOMETER DEV NAME(LOC) 5N.1C; GLUCOSE,POINT OF CARE 199 MG/DL (70-110)
[2023-11-27 11:56] LABS: GLUCOMETER DEV NAME(LOC) 5N.1C; GLUCOSE,POINT OF CARE 193 MG/DL (70-110)
[2023-11-27 11:57] LABS: GLUCOMETER DEV NAME(LOC) 5N.1C; GLUCOSE,POINT OF CARE 162 MG/DL (70-110)
[2023-11-27 11:57] LABS: GLUCOMETER DEV NAME(LOC) 5N.1C; GLUCOSE,POINT OF CARE 151 MG/DL (70-110)
== END 2023-11-25 12:30 | disposition home or self-care (01) | DRG 130 ==
LOC: EMS 18:55 → ICU 23:33 → 5S 11-22 11:40
PROVIDERS: ADMIT Internal Medicine; ATTEND Internal Medicine
PROC: 5A1955Z Respiratory Ventilation, Greater than 96 Consecutive Hours (ICD-10-PCS; principal; 2023-11-14)
PROC: 0BH17EZ Insertion of Endotracheal Airway into Trachea, Via Natural or Artificial Opening (ICD-10-PCS; 2023-11-14)
PROC: 5A12012 Performance of Cardiac Output, Single, Manual (ICD-10-PCS; 2023-11-14)
PROC: 02HV33Z Insertion of Infusion Device into Superior Vena Cava, Percutaneous Approach (ICD-10-PCS; 2023-11-15)
PROC: 0BJ08ZZ Inspection of Tracheobronchial Tree, Via Natural or Artificial Opening Endoscopic (ICD-10-PCS; 2023-11-17)
PROC: 05H933Z Insertion of Infusion Device into Right Brachial Vein, Percutaneous Approach (ICD-10-PCS; 2023-11-22)
DX: J96.21 Acute and chronic respiratory failure with hypoxia (principal); I46.9 Cardiac arrest, cause unspecified; G93.40 Encephalopathy, unspecified; I50.31 Acute diastolic (congestive) heart failure; R78.81 Bacteremia; J18.9 Pneumonia, unspecified organism; E87.4 Mixed disorder of acid-base balance; I48.0 Paroxysmal atrial fibrillation; E66.2 Morbid (severe) obesity with alveolar hypoventilation; Z20.822 Contact with and (suspected) exposure to COVID-19; J44.1 Chronic obstructive pulmonary disease with (acute) exacerbation; Z68.42 Body mass index [BMI] 45.0-49.9, adult; E11.9 Type 2 diabetes mellitus without complications; F19.10 Other psychoactive substance abuse, uncomplicated; J44.0 Chronic obstructive pulmonary disease with (acute) lower respiratory infection; F32.A Depression, unspecified; J96.22 Acute and chronic respiratory failure with hypercapnia; E87.6 Hypokalemia; Z79.01 Long term (current) use of anticoagulants; Z79.899 Other long term (current) drug therapy; Z87.891 Personal history of nicotine dependence; Z91.199 Patient's noncompliance with other medical treatment and regimen due to unspecified reason
CPT/HCPCS: 31624; 36245; 36569; 36600; 70450; 71045; 71275; 76937; 80048; 80053; 80202; 80307; 81001; 81002; 82550; 82805; 82962; 83605; 83735; 83880; 84100; 84132; 84145; 84484; 85025; 85610; 85730; 87015; 87040; 87070; 87077; 87081; 87101; 87186; 87205; 87206; 87220; 87252; 88108; 88305; 92526; 92610; 92950; 93005; 93306; 94002; 94003; 94640; 94667; 94668; 97116; 97162; 97166; 97530; 97535; 99291; G0480; J0131; J0171; J1120; J1644; J1940; J2543; J2704; J2920; J2930; J3370; J3480; J3490; J7030; J7050; J7060; Q9967; 36415-L1; 36415-TC; J7613